=== PATIENT | female | born 1960 | race Asian ===

== ENCOUNTER → 2022-01-24 14:45 | Outpatient (CLI) | payer OTHER, SELFPAY ==
[2022-01-24 16:26] LABS: COVID19 -Nasal RAPID Negative (Negative)
== END ==
PROVIDERS: Visit Provider Surgery
DX: Z20.822 Contact with and (suspected) exposure to COVID-19 (principal); Z01.812 Encounter for preprocedural laboratory examination
CPT/HCPCS: 87635; C9803

== ENCOUNTER 2022-01-27 06:26 | Day surgery (SDC) | payer OTHER, SELFPAY ==
--- NOTE | 2022-01-27 | PATH_ITS ---
[facility] Accession Number: [id number] . 01 Material submitted: . cecum - CECUM POLYP . 01 Diagnosis: Cecal Polyp, Biopsy: Colonic mucosa with prominent benign lymphoid aggregate. Negative for serrated lesion, dysplasia, or malignancy. MRV 01/30/2022 1305 Local . 01 Electronically signed: . Prakash Coreas MD, PhD, Pathologist NPI- [id number] . 01 Gross description: . CECUM POLYP: Received in formalin is 1 fragment(s) of veloz, soft tissue measuring 0.6 x 0.4 x 0.3 cm submitted entirely in 1 cassette(s) /ASHLEY 01/28/2022 1935 Local . 01 Pathologist provided ICD-10: K63.5 . 01 CPT . 384410 Specimen Comment: A courtesy copy of this report has been sent to [phone] Performed at: 01 [facility] [address] [place] [address], [place], [place] [id number] MD Mikal Henriquez MD Phone: [phone]
[2022-01-27 07:04] VITALS: BP 159/102; PULSE 93; RESP 16; TEMP 36.8; O2SAT 95; BMI 22.1
[2022-01-27] MEDS: LACTATED RINGERS 1,000 ML 42 ML IV (07:14)
--- NOTE | 2022-01-27 07:59 | PM.HP.1 ---
History of Present Illness History of Present Illness Date Patient Seen: 01/27/22 Time Patient Seen: 07:59 Chief complaint: SDC Narrative: Here for colon cancer screening. She had a negative colonoscopy approximately 10 years ago. Patient History Family & Social History Social History: household members spouse Tobacco & Substance use: Smoking Status Never smoker alcohol intake never Substance Use Type does not use Meds Home Medications and Allergies Home Medications Medication Instructions Recorded Confirmed Type No Known Home Medications 01/24/22 01/24/22 History Allergies Allergy/AdvReac Type Severity Reaction Status Date / Time No Known Drug Allergies Allergy Verified 01/27/22 07:02 Review of Systems Review of Systems ROS: Yes All systems reviewed with the patient and are negative except as otherwise documented Exam Vital Signs (past 8 hours): - 01/27/22 07:04 Temperature 98.2 F Pulse Rate 93 H Respiratory Rate 16 Blood Pressure 159/102 H Pulse Oximetry 95 Oxygen Delivery Method Room Air Const General: cooperative and comfortable Orientation: alert HENMT Head: normocephalic Ears: external ears normal Nose: external nose normal Face and sinus: normal facial exam Mouth: oral mucosae normal Eyes General: appearance normal, both eyes and all related structures Neck Neck: normal visual inspection Chest Chest: normal inspection of the chest Resp Effort & Inspection: normal respiratory effort Cardio Rate: regular rate GI Inspection: normal to inspection Skin General: no rashes or lesions noted and No jaundice Neuro General: patient alert and moves all extremities Cognition: normal cognition Speech: speech normal Extrem General: no pedal edema Psych Appearance: grossly normal Assessment & Plan Assessment & Plan narrative: 61-year-old female here for colon cancer screening. Colonoscopy is planned for today. Time Spent With Patient Critical Care time: I spent a total of [] minutes of critical care time on this patient's care today; this time is exclusive of procedural time.
--- NOTE | 2022-01-27 08:03 | PM.PREOP ---
Pre-operative Note COVID-19 COVID-19 status: Negative Result date/Date tested (Pos, Neg/Pending): 01/24/22 Criteria for continued procedure: Possibility delay results in more complex future surgery or treatment Interval Note History & Physical reviewed/Exam performed by Physician: Yes Changes to H&P: No ASA Class (for procedural sedation): I
--- NOTE | 2022-01-27 08:23 | P.OP.COLON_ITS ---
Operative Date/Time/Diagnoses Date of procedure: 01/27/22 Time of procedure: 08:23 Pre-op diagnosis: Colon cancer screening Post-op diagnosis: same Procedure & Clinicians Study performed: Colonoscopy with cold snare polypectomy Same procedure as scheduled: Yes Indications: Colon cancer screening Surgeon: Tae Downs Procedure Notes SCOAP/Timeout: Done Procedure in detail: After the risks and benefits were explained, written and verbal informed consent was obtained. The patient was brought into the procedure room and placed into the left lateral decubitus position. Please see nurse peoplesoft functional analyst notes for sedation details. Digital rectal examination was accomplished. The scope was introduced into the patient and advanced under direct visualization to the cecum as identified by the appendiceal orifice and ileocecal valve. The scope was slowly withdrawn to carefully examine the mucosa for any defects or lesions. Comprehensive imaging was accomplished throughout the rectum including the dentate line. The colon was decompressed, the scope was then removed from the patient who tolerated the procedure well. Pediatric colonoscope Bowel prep adequate Scope withdrawal time: 10 minutes Sedation minutes: 19 Complications: none Impression: There was a diminutive 5 mm sessile polyp in the cecum removed with cold snare polypectomy. No additional mucosal pathology was appreciated throughout. Grade 3 nonbleeding nonthrombosed hemorrhoids were noted. Endoscopic diagnosis 1. Small colon polyp 2. Grade 3 hemorrhoids Post-procedure Plan for aftercare: 1. Await histopathology 2. If this polyp is adenomatous, repeat colonoscopy will be suggested for 7 years time. Disposition: PACU
[2022-01-27 08:27] VITALS: BP 90/64; PULSE 72; RESP 16; TEMP 36.3; O2SAT 95
[2022-01-27 08:32] VITALS: BP 111/73; PULSE 87; RESP 21; O2SAT 98
[2022-01-27 08:37] VITALS: BP 119/80; PULSE 81; RESP 18; TEMP 36.3; O2SAT 100
[2022-01-27 08:41] VITALS: BP 126/89; PULSE 79; RESP 16; O2SAT 99
== END 2022-01-27 08:53 | disposition home or self-care (01) ==
PROVIDERS: PCP Physician Assistant; Referring Provider Internal Medicine Gastroenterology; Visit Provider Internal Medicine Gastroenterology
PROC: 0DJD8ZZ Inspection of Lower Intestinal Tract, Via Natural or Artificial Opening Endoscopic (ICD-10-PCS; CPT 45378; principal; 2022-01-27 08:00)
DX: Z12.11 Encounter for screening for malignant neoplasm of colon (principal); K64.2 Third degree hemorrhoids
CPT/HCPCS: 45385; J2704

== ENCOUNTER → 2024-11-09 14:44 | Outpatient (CLI) | payer OTHER, SELFPAY ==
--- NOTE | 2024-11-09 15:19 | EKG_ITS ---
[facility] [address] [place] [address] Test Date: 2024-11-09 Pat Name: Sammi Ivan Department: [facility] Room: Gender: Female Street Worker: NABILA : 1960 Requested By: Order Number: [id number] Reading MD: Shad Juarez Measurements Intervals [place] Rate: 89 P: 42 CA: 142 QRS: 37 QRSD: 90 T: 24 QT: 370 QTc: 450 Interpretive Statements Normal sinus rhythm Electronically Signed On 11-09-2024 17:36:20 PST by Shad Juarez
[2024-11-09 15:22] LABS: Appearance Urine UA CLEAR; Bilirubin Urine UA NEGATIVE (NEGATIVE); Color Urine UA YELLOW; Glucose Urine UA NEGATIVE (Negative); Ketones Urine UA NEGATIVE (NEGATIVE); Leukocyte Esterase Urine UA 1+ (NEGATIVE); Nitrite Urine UA NEGATIVE (Negative); Occult Blood Urine UA 2+ (Negative); Protein Urine UA TRACE (Negative); Specific Gravity Urine UA 1.015 (1.000-1.035); Urobilinogen Urine UA 0.2 E.U./dL (0.2)
[2024-11-09 15:35] LABS: Bacteria Urine Moderate (10-30); Culture Indicated Urine Specimen Cultured; RBC Urine 1-5/HPF (0-5/HPF); Squamous Epithelial Cell Urine 5-10 /HPF (0-5/HPF); Urine Volume 10mL (spun); WBC Urine 5-10/HPF (0-5/HPF)
[2024-11-09 15:43] LABS: Add Manual Diff / Slide Review NO; Basophils Absolute Auto 100 /uL (0-100); Basophils Percent Auto 0.7 % (0-2); Eosinophils Absolute Auto 0 /uL (0-450); Eosinophils Percent Auto 0.6 % (2-4); Hematocrit 43.4 % (36-46); Hemoglobin 14.7 g/dL (12.0-16.0); Lymphocytes Absolute Auto 2800 /uL (1100-4500); Lymphocytes Percent Auto 37.6 % (25-40); Mean Corpuscular HGB Conc 33.9 % (30-36); Mean Corpuscular Hemoglobin 32.2 PG (26-34); Monocytes Absolute Auto 400 /uL (0-900); Monocytes Percent Auto 4.8 % (3-14); Neutrophils Absolute Auto 4200 /uL (1500-7000); Neutrophils Percent Auto 56.3 % (50-75); Platelet Count 336 X10^3/uL (150-400); Red Blood Cell Count 4.57 X10^6/uL (4.0-5.2); Red Cell Distribution Width 12.2 % (11.6-14.8); White Blood Cell Count 7.4 X10^3/uL (4.5-11.0)
[2024-11-09 15:50] LABS: Hemoglobin A1C% w Est Avg Glu 5.1 % (4.0-6.0)
[2024-11-09 16:08] LABS: Blood Urea Nitrogen 11 mg/dL (7-17); Calcium 9.7 mg/dL (8.4-10.2); Carbon Dioxide 27 mmol/L (22-32); Chloride 102 mmol/L (98-107); Estimated Glomerular Filt Rate > 60 mL/min (>60); Glucose 94 mg/dL (80-110); HEMOLYSIS < 15 (0-50); Potassium 4.2 mmol/L (3.4-5.1); Sodium 143 mmol/L (137-145)
== END ==
PROVIDERS: PCP Nurse Practitioner Family; Referring Provider Orthopaedic Surgery; Visit Provider Orthopaedic Surgery
DX: Z01.818 Encounter for other preprocedural examination (principal); Z01.812 Encounter for preprocedural laboratory examination; R73.9 Hyperglycemia, unspecified; N39.0 Urinary tract infection, site not specified
CPT/HCPCS: 36415; 80048; 81001; 83036; 85025; 87086; 93005

== ENCOUNTER → 2025-01-25 11:04 | Outpatient (CLI) | payer OTHER, SELFPAY ==
[2025-01-25 12:32] LABS: Appearance Urine UA CLEAR; Bilirubin Urine UA NEGATIVE (NEGATIVE); Color Urine UA YELLOW; Glucose Urine UA NEGATIVE (Negative); Ketones Urine UA NEGATIVE (NEGATIVE); Leukocyte Esterase Urine UA NEGATIVE (NEGATIVE); Nitrite Urine UA NEGATIVE (Negative); Occult Blood Urine UA 2+ (Negative); Protein Urine UA NEGATIVE (Negative); Specific Gravity Urine UA 1.015 (1.000-1.035); Urobilinogen Urine UA 0.2 E.U./dL (0.2)
[2025-01-25 12:34] LABS: Urine Volume 10mL (spun)
[2025-01-25 12:35] LABS: Bacteria Urine None Seen; Culture Indicated Urine Cult Not Indicated; RBC Urine 1-5/HPF (0-5/HPF); Squamous Epithelial Cell Urine 1-5 /HPF (0-5/HPF); WBC Urine None Seen (0-5/HPF)
== END ==
PROVIDERS: PCP Nurse Practitioner Family; Visit Provider Orthopaedic Surgery
DX: N39.0 Urinary tract infection, site not specified (principal)
CPT/HCPCS: 81001

== ENCOUNTER → 2025-08-08 13:54 | Outpatient (CLI) | payer OTHER, SELFPAY ==
--- NOTE | 2025-08-08 13:55 | DI.US.S_ITS ---
PROCEDURE: US RENAL COMPLETE INDICATIONS: MICROSCOPIC HEMATURIA TECHNIQUE: Real-time scanning was performed of the kidneys and bladder, with image documentation. COMPARISON: None. FINDINGS: Kidneys: Kidneys are normal in size. Right kidney measures 10.7 cm long; left kidney measures 11.1 cm long. Right renal cortical thickness is 1.7 cm; left renal cortical thickness is 1.6 cm. Renal cortical echotexture is normal. Mild pelviectasis on the right with dilatation of the proximal right ureter measuring up to 7 millimeters. No anthony hydronephrosis or nephrolithiasis. No suspicious solid mass lesions. Bladder: Pre-void bladder volume is 88 mL. Post-void residual is 4 mL. Pre- void images demonstrate no intraluminal masses or stones. On pre-void images, neither ureteral jets are noted with color Doppler interrogation. (Of note, ureteral jets may not be detectable in up to 25% of cases due to insufficient differences in specific gravity between ureteral and bladder urine). Miscellaneous: No free pelvic fluid. Incidental note of hepatic steatosis. IMPRESSION: 1. Mild pelviectasis on the right with dilatation of the proximal right ureter measuring up to 7 millimeters. Obstructing stone is not excluded, consider CT for further evaluation. 2. Incidental note of hepatic steatosis. Dictated by: Broderick Arita M.D. on 08/08/2025 at 15:02 Approved by: Brodreick Arita M.D. on 08/08/2025 at 15:07
== END ==
LOC: US 13:55
PROVIDERS: PCP Nurse Practitioner Family; Referring Provider Urology; Visit Provider Urology
DX: R31.21 Asymptomatic microscopic hematuria (principal); N28.89 Other specified disorders of kidney and ureter; K76.0 Fatty (change of) liver, not elsewhere classified
CPT/HCPCS: 76770